=== PATIENT | male | born 1980 | race Two or more races ===

== ENCOUNTER 2023-12-05 13:41 | Emergency (ER) | payer MEDICAID, OTHER ==
[~2023-12-05] VITALS: Ht 157.5 cm; Wt 63.0 kg
[2023-12-05] MEDS: IV NORMAL SALINE 1000 ML BAG IV ONE (13:45)
[2023-12-05] MEDS ORDERED: LORAZEPAM 2 MG/1 ML VIAL ONE (13:55)
[2023-12-05 13:57] LABS: BASOPHILS % (AUTO) 0.7 % (0.0-2.0); EOSINOPHILS % (AUTO) 0.4 % (0.0-7.0); HEMATOCRIT 42.9 % (36.7-47.1); HEMOGLOBIN 14.6 g/dL (12.5-16.3); LYMPHOCYTES # (AUTO) 2.2 K/uL (0.8-4.8); LYMPHOCYTES % (AUTO) 34.2 % (20.5-51.5); MEAN CORPUSCULAR HEMOGLOBIN 30.6 uug (23.8-33.4); MEAN CORPUSCULAR HGB CONC 34 g/dL (32.5-36.3); MEAN CORPUSCULAR VOLUME 90.2 fL (73.0-96.2); MONOCYTES # (AUTO) 0.4 K/uL (0.1-1.30); MONOCYTES % (AUTO) 6.3 % (0.0-11.0); NEUTROPHILS # (AUTO) 3.8 K/uL (1.8-8.9); NEUTROPHILS % (AUTO) 58.4 % (38.5-71.5); PLATELET COUNT (AUTO) 293 K/uL (152-348); RED BLOOD CELL COUNT(AUTO) 4.76 MIL/uL (4.06-5.63); RED CELL DISTRIBUTION WIDTH 13.1 % (12.1-16.2); WHITE BLOOD COUNT (AUTO) 6.4 K/uL (3.6-10.2)
[2023-12-05 14:03] LABS: DIFFERENTIAL COMMENT 1
[2023-12-05] MEDS: LORAZEPAM 2 MG/1 ML VIAL IV ONE (14:03)
[2023-12-05 14:05] LABS: CALCIUM 9.3 mg/dL (8.5-10.1); CREATININE 0.7 mg/dL (0.6-1.3); POTASSIUM 3.5 mmol/L (3.5-5.1)
[2023-12-05] MEDS ORDERED: FAMO20TA8 PO (14:05)
[2023-12-05] MEDS ORDERED: CHOL500062 PO (14:05)
[2023-12-05] MEDS ORDERED: MULT-1045 PO (14:05)
[2023-12-05] MEDS ORDERED: CHLO25CA22 PO (14:05)
[2023-12-05] MEDS ORDERED: BUSP15TA3 PO (14:05)
[2023-12-05] MEDS ORDERED: CYAN100T44 PO (14:05)
[2023-12-05] MEDS ORDERED: LORA0.5T48 PO ×2 (14:05→16:48)
[2023-12-05] MEDS ORDERED: GABA-532 PO (14:05)
[2023-12-05] MEDS ORDERED: HYDR25CA PO ×2 (14:05)
[2023-12-05] MEDS ORDERED: THIA50TA10 PO (14:05)
[2023-12-05] MEDS ORDERED: FLUO40CA49 PO (14:05)
[2023-12-05] MEDS ORDERED: DIVA500T54 PO (14:05)
[2023-12-05] MEDS ORDERED: PYRI50CA PO (14:05)
[2023-12-05] MEDS ORDERED: PHEN300C6 PO (14:05)
[2023-12-05 14:10] LABS: ALBUMIN 4.3 g/dL (3.4-5.0); BILIRUBIN,DIRECT 0.2 mg/dL (0.0-0.2); BILIRUBIN,TOTAL 0.4 mg/dL (0.2-1.0); TOTAL PROTEIN, SERUM 8.6 g/dL (6.4-8.2)
[2023-12-05 17:00] VITALS: O2SAT 98
== END 2023-12-05 17:16 | disposition home or self-care (01) ==
LOC: ER 13:43
DX: F10.10 Alcohol abuse, uncomplicated (principal); F41.9 Anxiety disorder, unspecified; F19.10 Other psychoactive substance abuse, uncomplicated; F31.9 Bipolar disorder, unspecified; F20.9 Schizophrenia, unspecified; Z79.899 Other long term (current) drug therapy; Z59.00 Homelessness unspecified
CPT/HCPCS: 80076; 80048; 85025; 36415; 93005; 99284; 96361; 96374; 80320; J2060; J7040; A4606; A4663; G0480